=== PATIENT | female | born 1975 | race Caucasian/White ===

== ENCOUNTER 2020-09-25 07:39 | Emergency (ER) | payer BC, OTHER, SELFPAY ==
[~2020-09-25] VITALS: Ht 180.3 cm; Wt 87.9 kg
--- NOTE | 2020-09-25 07:50 | NUR ---
INITIAL PT CONTACT. PT PRESENTS TO ED C/O "FULL BODY SPASMS", HX PF SAME. PT STATES THESE SYMPTOMS HAVE BEEN OCCURING FOR "YEARS, AND BECOMING MORE FREQUENT". PT VERY ANXIOUS IN ROOM, UNABLE TO SIT STILL ON GURNEY. RESPIRATIONS REGULAR AND UNLABORED. 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 WILL CONTINUE TO MONITOR CLOSELY.
[2020-09-25] MEDS ORDERED: LORazepam 2 MG/ML, 1ML IM ONE (08:00)
[2020-09-25] MEDS ORDERED: DIPHENHYDRAMINE 50 MG/ML, 1ML ONE (08:03)
[2020-09-25] MEDS ORDERED: LORazepam 2 MG/ML, 1ML ONE (08:04)
[2020-09-25] MEDS ORDERED: DIPHENHYDRAMINE 50 MG/ML, 1ML IM ONE (08:30)
[2020-09-25] MEDS ORDERED: DIAZEPAM 5 MG/ML, 2ML ONE (08:45)
[2020-09-25] MEDS ORDERED: DIAZEPAM 5 MG/ML, 2ML IM ONE (09:00)
--- NOTE | 2020-09-25 09:00 | NUR ---
PT SITTING UPRIGHT ON GURNEY. PT STATES "NOTHING IS HELPING, IM SO OVER THESE SPASMS, THEY ARE TERRIBLE. I DONT KNOW WHY MEDICATIONS DONT HELP ME". MD AWARE. PT DNEIES ANY ADDITIONAL NEEDS AT THIS TIME. WILL CONTINUE TO MONITOR. CALL LIGHT WITHIN REACH.
--- NOTE | 2020-09-25 10:00 | NUR ---
PT SITTING UPRIGHT ON GURNEY, RESTING MORE CALMLY. PT STATES "MEDICINE ONLY HELPED A LITTLE, BUT I KNOW WHEN IT WEARS OFF, IT WILL BE EXTREME AGAIN". PT UP TO BATHROOM WITH THIS RN, STEADY GAIT. PT DENIES ANY ADDITIONAL NEEDS AT THIS TIME. WILL CONTINUE TO MONITOR. CALL LIGHT AND PERSONAL BELONGINGS WITHIN REACH.
--- NOTE | 2020-09-25 11:02 | NUR ---
PT SUPINE ON GURNEY WITH EYES CLOSED. NAD, VSS. PT DENIES ANY NEEDS AND IS RESTING COMFORTABLY. CALL LIGHT AND PERSONAL BELONGINGS IN REACH. WILL CONTINUE TO MONITOR. Addendum: 09/25/20 at 1113 by QUANG PT SUPINE ON GURNEY WITH EYES CLOSED. NAD, VSS. PT NOT EXPERIENCING ANY VISIBLE SPASMS WHILE RESTING ON GURNEY WITH EYES CLOSED. PT DENIES ANY NEEDS AND IS RESTING COMFORTABLY. CALL LIGHT AND PERSONAL BELONGINGS IN REACH. WILL CONTINUE TO MONITOR.
[2020-09-25 11:46] VITALS: BP 118/72
--- NOTE | 2020-09-25 11:46 | NUR ---
Patient given discharge instructions and they have confirmed that they understand the instructions. Patient ambulatory with steady gait.
[2020-09-26] MEDS ORDERED: PANT40GR PO (07:39)
[2020-09-26] MEDS ORDERED: METH100V PO (07:46)
[2020-09-26] MEDS ORDERED: BENZ2AMP4 PO (07:46)
[2020-09-26] MEDS ORDERED: ZOLP5TAB PO (07:46)
== END 2020-09-25 11:48 | disposition home or self-care (01) ==
LOC: ED 09:41
DX: F33.9 Major depressive disorder, recurrent, unspecified (principal); G25.9 Extrapyramidal and movement disorder, unspecified; F41.1 Generalized anxiety disorder
CPT/HCPCS: 96372; 99285; J1200; J2060; J3360

== ENCOUNTER 2020-09-25 14:12 | Inpatient (IN) | payer BC ==
[~2020-09-25] VITALS: Ht 180.3 cm; Wt 96.4 kg
--- NOTE | 2020-09-25 14:49 | NUR ---
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 Followed by Dr Mcdaniel, a Neurologist at [facility]. Recently started on Cogentin and Robaxin as well as Provigil and klonopin. Initial symptoms started approximately 3 years ago. Believed to be related to taking Abilify for 5 years. No pain complaints. No additional medical complaints at this time. Exacerbated by stress at times.
[2020-09-25] MEDS ORDERED: LORazepam 2 MG/ML, 1ML ONE ×2 (14:52→17:10)
[2020-09-25] MEDS ORDERED: LORazepam 2 MG/ML, 1ML IVPush ONE (15:00)
[2020-09-25] MEDS ORDERED: SODIUM CHLORIDE FLUSH 10ML SYR IVF ONE (15:00)
[2020-09-25 15:13] LABS: BASOPHILS % (AUTO) 0 % (0-1); EOSINOPHILS % (AUTO) 0 % (1-7); LYMPHOCYTES % (AUTO) 12 % (22-44); MEAN CORPUSCULAR HEMOGLOBIN 33.4 pg (27.0-34.8); MEAN CORPUSCULAR HGB CONC 34.4 g/dL (32.4-35.8); MEAN PLATELET VOLUME 6.9 fL (7.4-10.4); MONOCYTES % (AUTO) 7 % (2-9); NEUTROPHILS % (AUTO) 81 % (42-75); PLATELET COUNT 418 x10^3/uL (130-400); RED BLOOD COUNT 4.66 x10^6/uL (3.82-5.3); RED CELL DISTRIBUTION WIDTH 13.4 % (9.6-15.2)
[2020-09-25 15:23] LABS: ALANINE AMINOTRANSFERASE 28 U/L (12-78); ALBUMIN 4.3 g/dL (3.4-5.0); ANION GAP 8 mmol/L (5-15); CALCIUM 8.9 mg/dL (8.5-10.1); CHLORIDE 109 mmol/L (98-107); CREATININE 1.11 mg/dL (0.55-1.02)
[2020-09-25 15:28] LABS: ALKALINE PHOSPHATASE 96 U/L (45-117); BILIRUBIN,TOTAL 0.5 mg/dL (0.2-1.0); TOTAL PROTEIN 7.6 g/dL (6.4-8.2)
[2020-09-25] MEDS ORDERED: BACLOFEN 10 MG TABLET PO STA (15:38)
[2020-09-25 15:47] LABS: MD SCAN
--- NOTE | 2020-09-25 15:54 | NUR ---
PHARM REQUEST SENT
[2020-09-25 16:01] LABS: MICROSCOPIC NOT IND
--- NOTE | 2020-09-25 16:27 | NUR ---
PT NOT MOVING MUCH, REPORTS FEELING BETTER. WORRIED ABOUT GOING HOME
[2020-09-25] MEDS ORDERED: LORazepam 2 MG/ML, 1ML IV STA (17:16)
[2020-09-25] MEDS ORDERED: ONDANSETRON ODT 4 MG PO PRN (19:00)
[2020-09-25] MEDS ORDERED: PROMETHAZINE 25 MG/ML, 1ML IM PRN (19:00)
[2020-09-25] MEDS ORDERED: DOCUSATE 100 MG CAPSULE PO PRN (19:00)
[2020-09-25] MEDS ORDERED: BISACODYL 10 MG SUPP PR PRN (19:00)
[2020-09-25] MEDS ORDERED: POLYETHYLENE GLYCOL 17 GM PACKET PO PRN (19:00)
[2020-09-25] MEDS ORDERED: LABETALOL 5MG/ML, 20ML IVPush PRN (19:00)
[2020-09-25] MEDS ORDERED: ONDANSETRON 2MG/ML, 2ML IVPush PRN (19:00)
[2020-09-25] MEDS: ENOXAPARIN 40 MG/0.4 ML SQ SCH (19:22)
[2020-09-25] MEDS: SODIUM CHLORIDE 0.9% 1,000 ML IV SCH (19:22)
[2020-09-25] MEDS: KETOROLAC 30 MG/1 ML IV PRN (19:22)
[2020-09-25 19:25] VITALS: BP 116/83
[2020-09-25] MEDS ORDERED: FLU VACC QS2020-21(6MOS UP)/PF 60MCG/0.5 ML SYR IM-VACC ONE (20:00)
[2020-09-25] MEDS ORDERED: LORazepam 1MG TABLET PO ONE (21:30)
[2020-09-26 00:40] VITALS: BP 101/67
[2020-09-26] MEDS: KETOROLAC 30 MG/1 ML IV PRN ×4 (02:19→21:54)
[2020-09-26] MEDS: SODIUM CHLORIDE 0.9% 1,000 ML IV SCH (04:30)
[2020-09-26 06:07] LABS: BASOPHILS % (AUTO) 1 % (0-1); EOSINOPHILS % (AUTO) 2 % (1-7); LYMPHOCYTES % (AUTO) 22 % (22-44); MEAN CORPUSCULAR HGB CONC 33.3 g/dL (32.4-35.8); MEAN PLATELET VOLUME 6.8 fL (7.4-10.4); MONOCYTES % (AUTO) 8 % (2-9); NEUTROPHILS % (AUTO) 68 % (42-75); PLATELET COUNT 332 x10^3/uL (130-400); RED BLOOD COUNT 4.28 x10^6/uL (3.82-5.3); RED CELL DISTRIBUTION WIDTH 13.5 % (9.6-15.2)
[2020-09-26 06:16] LABS: MD NO
[2020-09-26 06:17] LABS: CHLORIDE 111 mmol/L (98-107)
[2020-09-26 06:30] LABS: ALANINE AMINOTRANSFERASE 22 U/L (12-78); ALBUMIN 3.2 g/dL (3.4-5.0); ALKALINE PHOSPHATASE 84 U/L (45-117); ANION GAP 5 mmol/L (5-15); BILIRUBIN,TOTAL 0.4 mg/dL (0.2-1.0); CALCIUM 8.5 mg/dL (8.5-10.1); CHOL/HDL RATIO 2.4; CHOLESTEROL, TOTAL 142 mg/dL (140-239); CREATININE 0.99 mg/dL (0.55-1.02); HDL CHOL % 41 % (28-40); HDL CHOLESTEROL (DIRECT) 58 mg/dL (40-60); LDL CHOLESTEROL,CALCULATED 61 mg/dL (54-169); LDL/HDL RATIO 1.1 (0.5-3.0); TOTAL PROTEIN 5.9 g/dL (6.4-8.2); TRIGLYCERIDES 113 mg/dL (50-200); VLDL CHOLESTEROL 23 mg/dL (0-25)
[2020-09-26 06:32] VITALS: BP 101/68
[2020-09-26] MEDS ORDERED: PANT40GR PO (07:39)
[2020-09-26] MEDS ORDERED: BENZ2AMP4 PO (07:46)
[2020-09-26] MEDS ORDERED: METH100V PO (07:46)
[2020-09-26] MEDS ORDERED: ZOLP5TAB PO (07:46)
[2020-09-26] MEDS ORDERED: METHOCARBAMOL 500 MG TABLET PO ONE (08:30)
[2020-09-26] MEDS ORDERED: BENZTROPINE 1 MG TABLET PO SCH (09:00)
[2020-09-26] MEDS: METHOCARBAMOL 500 MG TABLET PO SCH ×3 (12:27→21:53)
[2020-09-26] MEDS: ACETAMINOPHEN 325 MG TABLET PO PRN (14:10)
[2020-09-26] MEDS ORDERED: PROPRANOLOL 10 MG TABLET PO PRN (15:00)
[2020-09-26] MEDS: NICOTINE 21 MG/24 HR PATCH.TD24 TD SCH (15:36)
[2020-09-26] MEDS: TRIHEXYPHENIDYL 2MG TABLET PO SCH (15:36)
[2020-09-26] MEDS: VITAMIN E 400 UNITS CAPSULE PO SCH (15:40)
[2020-09-26 18:57] VITALS: BP 129/77
[2020-09-26 19:45] VITALS: BP 121/71
[2020-09-26] MEDS: ENOXAPARIN 40 MG/0.4 ML SQ SCH (19:51)
[2020-09-27 00:34] VITALS: BP 119/82
[2020-09-27] MEDS ORDERED: SIMETHICONE 125 MG CHEW TAB PO ONE (01:00)
[2020-09-27] MEDS: TRIHEXYPHENIDYL 2MG TABLET PO SCH ×4 (01:38→21:12)
[2020-09-27] MEDS: METHOCARBAMOL 500 MG TABLET PO SCH ×4 (06:07→21:12)
[2020-09-27] MEDS: ACETAMINOPHEN 325 MG TABLET PO PRN ×3 (07:42→19:51)
[2020-09-27] MEDS: KETOROLAC 30 MG/1 ML IV PRN ×3 (07:42→19:51)
[2020-09-27] MEDS: VITAMIN E 400 UNITS CAPSULE PO SCH (09:10)
[2020-09-27] MEDS ORDERED: ZOLPIDEM 10MG TABLET PO PRN (12:30)
[2020-09-27] MEDS: NICOTINE 21 MG/24 HR PATCH.TD24 TD SCH (15:48)
[2020-09-27 16:30] VITALS: BP 116/88
[2020-09-27 19:20] VITALS: BP 133/78
[2020-09-27] MEDS: ENOXAPARIN 40 MG/0.4 ML SQ SCH (19:51)
[2020-09-28 00:37] VITALS: BP 111/80
[2020-09-28] MEDS: KETOROLAC 30 MG/1 ML IV PRN (04:29)
[2020-09-28] MEDS: ACETAMINOPHEN 325 MG TABLET PO PRN (04:29)
[2020-09-28] MEDS: METHOCARBAMOL 500 MG TABLET PO SCH ×2 (06:01→11:03)
[2020-09-28 07:06] VITALS: BP 120/80
[2020-09-28] MEDS: TRIHEXYPHENIDYL 2MG TABLET PO SCH (08:33)
[2020-09-28] MEDS: VITAMIN E 400 UNITS CAPSULE PO SCH (08:33)
[2020-09-28] MEDS ORDERED: TRIH2TAB3 PO (14:02)
== END 2020-09-28 15:22 | disposition home or self-care (01) | DRG 57 ==
LOC: ED 14:34 → EDIP 17:18 → 3N 18:40
PROVIDERS: ADMIT Hospitalist; ATTEND Hospitalist
DX: G25.71 Drug induced akathisia (principal); F32.9 Major depressive disorder, single episode, unspecified; F41.0 Panic disorder [episodic paroxysmal anxiety]; F41.1 Generalized anxiety disorder; G24.9 Dystonia, unspecified; G89.29 Other chronic pain; F19.10 Other psychoactive substance abuse, uncomplicated; D72.829 Elevated white blood cell count, unspecified; M54.9 Dorsalgia, unspecified; Z72.0 Tobacco use; Z23 Encounter for immunization
CPT/HCPCS: 36415; 80053; 80061; 81003; 82550; 83605; 83735; 84443; 84703; 85025; 90686; 96374; 96375; 99285; G0378; J1650; J1885; J2405; J2060; J7030